=== PATIENT | female | born 1955 | race Caucasian/White ===

== ENCOUNTER 2021-06-20 13:35 | Emergency (ER) | payer MEDICARE, OTHER, SELFPAY ==
[2021-06-20 13:36] VITALS: BP 187/101; PULSE 78; RESP 14; TEMP 36.3; O2SAT 98; BMI 31.8
--- NOTE | 2021-06-20 14:33 | EKG12_ITS ---
Test Reason : ANXIETY Blood Pressure : / mmHG Vent. Rate : 079 BPM Atrial Rate : 079 BPM P-R Int : 172 ms QRS Dur : 092 ms QT Int : 406 ms P-R-T Axes : 030 -20 012 degrees QTc Int : 465 ms Normal sinus rhythm Inferior infarct , age undetermined Abnormal ECG Confirmed by JAYDE HAYES, EDWIN ([id number]), social media editor JUAN ANTONIO JAMES ([id number]) on 06/25/2021 9:20:21 AM Referred By: JASON Confirmed By:MICKEY DONOHUE MD
--- NOTE | 2021-06-20 14:34 | EDS_ITS ---
HPI History of Present Illness Chief Complaint: Anxiety Informant: patient Onset/Context/Timing Onset: Days Context: Gradual Onset Current Severity: Moderate Maximum Severity: Moderate Narrative Narrative: Patient presents secondary to anxiety and elevated blood pressure. She states that approximate 1 month ago she decreased her BuSpar from 3 tabs daily to 2 tabs daily. Approximately 3 days ago she started feeling more anxious and went back on her regular 3 tabs a day. She states she still feels anxious and her blood pressure has been elevated. She states her blood pressure normally runs around 140 systolic and lately has been running in the 160-180 range. She is on lisinopril daily and is continuing to take that. [facility] Medical History High cholesterol Hypertension Hypothyroidism Kidney stone Home Medications levothyroxine 75 mcg PO DAILY 03/16/17 [History Last Taken Unknown] simvastatin [Zocor] 20 mg PO DAILY 03/16/17 [History Last Taken Unknown] acetaminophen [Tylenol] 650 mg PO Q4H PRN PRN tab 03/18/17 [Rx Last Taken Unknown] cefadroxil 1 g PO BID #16 tab 03/18/17 [Rx Last Taken Unknown] tamsulosin 0.4 mg PO BID #8 capsule 03/18/17 [Rx Last Taken Unknown] lorazepam [Ativan] 0.5 mg PO TID PRN #14 tab 06/20/21 [Rx Last Taken Unknown] Allergy/AdvReac Type Severity Reaction Status Date / Time No Known Allergies Allergy Verified 06/20/21 13:36 Social History Smoking Status: Never smoker ROS ROS ED Constitutional Constitutional ED: Denies chills or fever(s) Eyes Eyes: Denies change in vision ENT ENT ED: Denies sore throat Cardiovascular Cardiovascular: Denies chest pain Respiratory/Chest Respiratory/Chest: Denies cough or dyspnea Gastrointestinal Gastrointestinal: Denies abdominal pain, diarrhea, nausea or vomiting Genitourinary Genitourinary ED: Denies dysuria Musculoskeletal Musculoskeletal: Denies back pain Integumentary Denies rash Neurologic Neurologic: Reports paresthesias; Denies headache(s) or weakness Psychiatric Psychiatric: Reports anxiety; Denies depression Allergic/Immunologic Allergic/Immunologic ED: Denies urticaria EXAM Physical Exam Const Vital Signs: 06/20/21 13:36 Temperature 97.3 F L Temperature Source Temporal Pulse Rate 78 Respiratory Rate 14 Blood Pressure 187/101 H Blood Pressure Mean 129 Pulse Ox 98 Oxygen Delivery Method Room Air Positive well nourished and well developed General Appearance ED: well developed HEENT Reports normocephalic and head/scalp atraumatic Eyes PERRL and EOMs intact bilaterally Neck supple Chest Wall inspection of chest normal and palpation of chest normal Resp normal respiratory effort and clear to auscultation bilaterally Cardio regular rate and regular rhythm GI normal to inspection, nondistended, normoactive bowel sounds Palpation: soft Back/Spine no CVA tenderness Extremity normal to inspection Neuro oriented x3 and no sensory deficits noted Sensorium / Orientation: alert Motor Exam: strength 5/5 throughout Psych Mood & Affect: anxious Skin no rashes or lesions noted MDM MDM MDM Narrative Medical decision making narrative: Lab work and EKG obtained. Lab Data Attestation: I reviewed the patient's lab results. Labs: Laboratory Results - last 24 hr 06/20/21 06/20/21 06/20/21 14:40 15:00 15:00 WBC Cancelled Corrected WBC Cancelled RBC Cancelled Hgb Cancelled Hct Cancelled MCV Cancelled MCH Cancelled MCHC Cancelled RDW Std Deviation Cancelled RDW Coeff of Greg Cancelled Plt Count Cancelled MPV Cancelled Immature Gran % (Auto) Cancelled Neut % (Auto) Cancelled Lymph % (Auto) Cancelled [place] % (Auto) Cancelled Eos % (Auto) Cancelled Baso % (Auto) Cancelled Absolute Neuts (auto) Cancelled Absolute Lymphs (auto) Cancelled Total Counted Cancelled Neutrophils % (Manual) Cancelled Band Neutrophils % Cancelled Lymphocytes % (Manual) Cancelled Monocytes % (Manual) Cancelled Eosinophils % (Manual) Cancelled Basophils % (Manual) Cancelled Metamyelocytes % Cancelled Myelocytes % Cancelled Promyelocytes % Cancelled Blast Cells % Cancelled Plasma Cell % (Manual) Cancelled Other Cells % Cancelled Nucleated RBC % Cancelled Nucleated RBCs/100 WBC Cancelled Differential Comment Cancelled Diff Path Review Cancelled Hypersegmented Neuts Cancelled Atypical Lymphocytes Cancelled Reactive Lymphocytes Cancelled Smudge Cells Cancelled Toxic Granulation Cancelled Toxic Vacuolation Cancelled Dohle Bodies Cancelled Pily Rods Cancelled Platelet Estimate Cancelled Plt Morphology Comment Cancelled RBC Morphology Cancelled Polychromasia Cancelled Hypochromasia Cancelled Poikilocytosis Cancelled Basophilic Stippling Cancelled Anisocytosis Cancelled Microcytosis Cancelled Macrocytosis Cancelled Spherocytes Cancelled Sickle Cells Cancelled Target Cells Cancelled Tear Drop Cells Cancelled Ovalocytes Cancelled Stomatocytes Cancelled [place] Bodies Cancelled [place] Cells Cancelled Bite Cells Cancelled Crenated Cell Cancelled Acanthocytes (Spur) Cancelled Rouleaux Cancelled Schistocytes Cancelled Sodium 141 Potassium 3.5 Chloride 106 Carbon Dioxide 27.0 Anion Gap 8 BUN 11 Creatinine 0.79 Estim Creat Clear Calc 39.21 Est GFR (MDRD) Af Amer 94 Est GFR (MDRD) Non-Af 77 BUN/Creatinine Ratio 14.0 Glucose 102 Calcium 9.2 Troponin I High Sens 9 TSH 2.83 Urine Color Straw Urine Clarity Clear Urine pH 7.0 Ur Specific [place] 1.010 Urine Protein Negative Urine Glucose (UA) Normal Urine Ketones Negative Urine Occult Blood Negative Urine Nitrite Negative Urine Bilirubin Negative Urine Urobilinogen Normal Ur Leukocyte Esterase Negative Urine RBC 0 SEEN Urine WBC 0 SEEN Ur Squamous Epith Cells 0 SEEN Urine Bacteria 0 SEEN Urine Mucus 0 SEEN 06/20/21 15:25 WBC 11.3 H Corrected WBC RBC 5.34 Hgb 15.4 H Hct 46.6 MCV 87.3 MCH 28.8 MCHC 33.0 RDW Std Deviation 44.5 H RDW Coeff of Greg 13.9 Plt Count 281 MPV 12.1 H Immature Gran % (Auto) 0.400 Neut % (Auto) 81.9 H Lymph % (Auto) 12.6 L [place] % (Auto) 4.5 Eos % (Auto) 0.1 Baso % (Auto) 0.5 Absolute Neuts (auto) 9.3 H Absolute Lymphs (auto) 1.43 Total Counted Neutrophils % (Manual) Band Neutrophils % Lymphocytes % (Manual) Monocytes % (Manual) Eosinophils % (Manual) Basophils % (Manual) Metamyelocytes % Myelocytes % Promyelocytes % Blast Cells % Plasma Cell % (Manual) Other Cells % Nucleated RBC % 0 Nucleated RBCs/100 WBC Differential Comment Diff Path Review Hypersegmented Neuts Atypical Lymphocytes Reactive Lymphocytes Smudge Cells Toxic Granulation Toxic Vacuolation Dohle Bodies Pily Rods Platelet Estimate Plt Morphology Comment RBC Morphology Polychromasia Hypochromasia Poikilocytosis Basophilic Stippling Anisocytosis Microcytosis Macrocytosis Spherocytes Sickle Cells Target Cells Tear Drop Cells Ovalocytes Stomatocytes [place] Bodies Justin Cells Bite Cells Crenated Cell Acanthocytes (Spur) Rouleaux Schistocytes Sodium Potassium Chloride Carbon Dioxide Anion Gap BUN Creatinine Estim Creat Clear Calc Est GFR (MDRD) Af Amer Est GFR (MDRD) Non-Af BUN/Creatinine Ratio Glucose Calcium Troponin I High Sens TSH Urine Color Urine Clarity Urine pH Ur Specific [place] Urine Protein Urine Glucose (UA) Urine Ketones Urine Occult Blood Urine Nitrite Urine Bilirubin Urine Urobilinogen Ur Leukocyte Esterase Urine RBC Urine WBC Ur Squamous Epith Cells Urine Bacteria Urine Mucus EKG Initial EKG: Attestation: I personally reviewed and interpreted this EKG as follows: Interpretation: Sinus Rhythm (Sinus at 79 with no acute ischemia.) Treatment and Re-Evaluation Comments:: Lab work unremarkable. EKG reveals no ischemia. On repeat exam patient systolic blood pressures come down to 168. She was given a small dose of IV Ativan to help with anxiety. On repeat evaluation she does feel improved from the standpoint of her blood pressure is reading 192 systolic. She will be given a dose of IV labetalol and will be discharged home with family. She will keep a journal of her blood pressure readings. She will be back on her regular dosing of BuSpar and will be given low-dose Ativan to use as needed to help with anxiety. Discharge Plan Triage Chief Complaint: Anxiety ED Provider: Seda Ramirez Dx/Rx/DC Orders Clinical Impression: Anxiety, Hypertension Instructions: ED Anxiety Reaction, ED Hypertension, Established Prescriptions: New lorazepam [Ativan] 0.5 mg tablet 0.5 mg PO TID PRN (Reason: anxiety) Qty: 14 RF: 0 No Action levothyroxine 75 MCG tablet 75 mcg PO DAILY RF: 0 simvastatin [Zocor] 20 MG tablet 20 mg PO DAILY RF: 0 acetaminophen [Tylenol] 325 MG tablet 650 mg PO Q4H PRN PRN (Reason: Pain) RF: 0 tamsulosin 0.4 MG capsule 0.4 mg PO BID Qty: 8 RF: 0 cefadroxil 1 GM tablet 1 g PO BID Qty: 16 RF: 0 Referrals: FREDERICK FLOOD [Other] - 1 Week Disposition Disposition: Home, Self Care
[2021-06-20 14:48] LABS: Bacteria 0 SEEN /hpf (None Seen); Mucous, Urine 0 SEEN /hpf (<or=2+); Red Blood Cells-Urine 0 SEEN /hpf (0-5); Squamous Epithelial Cells - UA 0 SEEN /hpf (5-10); White Blood Cells 0 SEEN /hpf (0-5)
[2021-06-20 14:51] LABS: Color, Urine Straw (Yellow); Glucose, Dipstick Normal (Normal); Ketone-Dipstick Negative (Negative); Leukocyte Esterase-Dipstick Negative /ul (Negative); Nitrite-Dipstick Negative (Negative); Occult Blood-Urine Negative /ul (Negative); Protein-Dipstick Negative (Negative); Urine Bilirubin Dipstick Negative (Negative); Urine Clarity Clear (Clear); Urine Urobilinogen Normal (Normal)
[2021-06-20 15:29] LABS: Anion Gap 8 (5-15); BUN 11 mg/dL (7-18); Calcium,Total 9.2 mg/dL (8.5-10.1); Chloride 106 mmol/L (98-107); Creatinine, Serum 0.79 mg/dL (0.55-1.02); EST Glomerular Filtration Rate 77 mL/min (>60); Est Glom Filt Rate - Afr Amer 94 mL/min (>60); Estimated Creatinine Clearance 39.21 ml/min; Glucose 102 mg/dL (74-106); Potassium 3.5 mmol/L (3.5-5.1); Sodium Level 141 mmol/L (136-145); Thyroid Stim Hormone (TSH) 2.83 uIU/mL (0.358-3.74); Troponin-I HS 9 pg/mL (3.0-54.0)
[2021-06-20 15:30] LABS: Absolute Lymphocyte Count 1.43 X10^3/uL (0.83-4.51); Absolute Neutrophil Count 9.3 X10^3/uL (2.0-7.7); Basophil# 0.06 X10^3/uL; Basophil% 0.5 % (0-1); Eosinophil# 0.01 X10^3/uL; Eosinophils% 0.1 % (0-5); Hematocrit 46.6 % (37-47); Hemoglobin 15.4 g/dL (12.0-15.0); Lymphocyte # 1.43 X10^3/ul (0.83-4.51); Lymphocyte % 12.6 % (19-41); Mean Corpuscular Hgb 28.8 pg (27.0-32.0); Mean Corpuscular Volume 87.3 fL (81-99); Mean Platelet Vol. 12.1 fl (6.2-12.0); Monocyte# 0.51 X10^3/uL; Monocyte% 4.5 % (0-10); NRBC Flagged by Analyzer 0 % (0-5); Neutrophil # 9.26 X10^3/uL (2.7-7.7); Neutrophil % 81.9 % (47-70); Platelet Count 281 K/mm3 (150-450); RBC Distribution Width CV 13.9 % (11.6-14.6); RBC Distribution Width SD 44.5 fl (35.1-43.9); Red Blood Count 5.34 M/mm3 (4.2-5.4); White Blood Count 11.3 K/mm3 (4.4-11.0)
[2021-06-20] MEDS: LORazepam 2 MG/ML Syringe 0.5 MG IV (16:24)
--- NOTE | 2021-06-20 17:29 | ED.RN ---
trandate not given per dr truong. pt's bp was 158/76.
[2021-06-20 17:31] VITALS: BP 158/76; PULSE 80; RESP 16; O2SAT 99
== END 2021-06-20 17:36 | disposition home or self-care (01) ==
PROVIDERS: Emergency Provider Emergency Medicine
DX: F41.9 Anxiety disorder, unspecified (principal); I10 Essential (primary) hypertension
CPT/HCPCS: 80048; 81001; 84443; 84484; 85025; 93005; 96374; 99285; A4216

== ENCOUNTER 2022-12-30 23:19 | Emergency (ER) | payer MEDICARE, OTHER, SELFPAY ==
[2022-12-30 23:20] VITALS: BP 180/84; PULSE 94; RESP 18; TEMP 36.4; O2SAT 100; BMI 31.4
--- NOTE | 2022-12-30 23:33 | ED.VIS.GI ---
HPI HPI - GI History of Present Illness Chief Complaint: Complaint Detail of Chief Complaint: Right flank pain with dysuria. Informant: patient Abdominal Pain/Flank Pain Onset: Days Context: Gradual Onset Timing: Intermittent Quality: Aching Location: Right Flank Current Severity: Mild Maximum Severity: Mild Nausea/Vomiting/Emesis GI Symptom: Negative for Nausea or Vomiting Diarrhea/Melena/Hematochezia GI Symptom: Negative for Diarrhea, Melena or Hematochezia Associated Symptoms Associated Symptoms: Positive for Dysuria; Negative for Frequency, Hematuria or Urgency Narrative Narrative: 67-year-old female history of 1 prior kidney stone and hypertension. States she has had dysuria after urinating when she wipes for the last several days. Start having right flank pain about 5 days ago on . Describes it as intermittent. She sees no gross blood in her urine and no foul odor. She denies any nausea, vomiting or diarrhea. No fever. Currently she is not having any significant flank pain. Prior similar symptoms: Yes Recent Illness/Hospitalization: No PFSH PFSH Medical History High cholesterol Hypertension Hypothyroidism Kidney stone Home Medications levothyroxine 75 mcg tablet 75 mcg PO DAILY 03/16/17 [History Last Taken Unknown] simvastatin 20 mg tablet (Zocor) 20 mg PO DAILY 03/16/17 [History Last Taken Unknown] acetaminophen 325 mg tablet (Tylenol) 650 mg PO Q4H PRN PRN Pain 03/18/17 [Rx Last Taken Unknown] cefadroxil 1 gram tablet 1 g PO BID #16 tabs 03/18/17 [Rx Last Taken Unknown] tamsulosin 0.4 mg capsule 0.4 mg PO BID ##8 03/18/17 [Rx Last Taken Unknown] lorazepam 0.5 mg tablet (Ativan) 0.5 mg PO TID PRN anxiety #14 tabs 06/20/21 [Rx Last Taken Unknown] Allergy/AdvReac Type Severity Reaction Status Date / Time No Known Allergies Allergy Verified 12/30/22 23:20 Social History Smoking Status: Never smoker ROS ROS ED ROS Narrative Dysuria. Right flank pain. Review of Systems ROS Unobtainable: Denies due to encephalopathy Constitutional Constitutional ED: Denies chills or fever(s) ENT ENT ED: Denies ear pain Cardiovascular Cardiovascular: Denies chest pain Respiratory/Chest Respiratory/Chest: Denies cough or dyspnea Gastrointestinal Gastrointestinal: Reports abdominal pain; Denies constipation, diarrhea, melena, nausea or vomiting Genitourinary Genitourinary ED: Reports dysuria; Denies hematuria Musculoskeletal Musculoskeletal: Denies arthralgias Integumentary Denies abscess Neurologic Neurologic: Denies headache(s) Psychiatric Psychiatric: Denies anxiety Endocrine Endocrinology: Denies polydipsia or polyphagia Hematologic/Lymphatic Hematologic/Lymphatic: Denies easy bleeding Allergic/Immunologic Allergic/Immunologic ED: Denies mouth swelling EXAM Physical Exam Narrative Exam Narrative: Well-appearing 67-year-old female. Vital signs stable afebrile. Sitting upright in bed no distress. H EENT exam unremarkable. Lungs clear. Heart regular rhythm. Chest wall nontender. Abdomen soft nontender. There is absolutely no right upper or right lower quadrant tenderness. There is no reproducible pain. There is no signs of trauma. There is no rash. Back is nontender. Moving all 4 extremities. Nontender no edema. Neurologically she is awake and alert. Const Vital Signs: 12/30/22 23:20 Temperature 97.5 F L Temperature Source Temporal Pulse Rate 94 Respiratory Rate 18 Blood Pressure 180/84 H Blood Pressure Mean 116 Pulse Ox 100 Positive well nourished and well developed; Negative for cachectic, contractures or unkempt General Appearance ED: well developed and NAD; Negative for unkempt, cachectic, contractures or pallor Nutritional Appearance: Negative for cachectic HEENT Reports moist mucous membranes normocephalic and atraumatic; Negative for trauma or tenderness Eyes PERRL and EOMs intact bilaterally General Eye ED: Negative for pale conjunctiva or scleral icterus Neck no lymphadenopathy, supple and no JVD General: Negative for tenderness Carotids: Negative for other Lymph Lymphatic: Negative for other Resp normal respiratory effort and clear to auscultation bilaterally Effort and Inspection: Negative for respiratory distress Auscultation: Negative for rales, rhonchi or wheezes Cardio regular rate, regular rhythm, S1 normal heart sound, S2 normal heart sound and no murmurs GI non-tender, non-distended and no masses Inspection: Negative for abdominal distention Auscultation: normoactive bowel sounds Palpation: soft; Negative for tender, guarding, rigid, hernia, mass, pulsatile mass or rebound tenderness present Back/Spine no CVA tenderness General Back: Negative for CVA tenderness Cervical Spine: Negative for cervical spine tenderness Thoracic Spine / Upper Back: Negative for thoracic spinal tenderness Lumbar Spine / Lower Back: Negative for lumbar spinal tenderness Coccyx: Negative for other Extremity full ROM General Extremety ED: Negative for edema or tenderness General Extremity: Negative for edema Neuro CN's II-XII intact bilaterally and moves all extremities Sensorium / Orientation: alert, oriented to person, oriented to place and oriented to time; Negative for orientation impaired or confused Motor Exam: strength 5/5 throughout Psych mental status grossly normal and thought process normal Appearance: Negative for unkempt Attitude: No agitated Mood & Affect: Negative for depressed, anxious or tearful Skin no wounds General Skin Exam: Negative for jaundice or pallor Lesions: no lesions Rashes: no rashes Trauma: Negative for abrasion Nails: Negative for discolored MDM MDM MDM Narrative Medical decision making narrative: 67-year-old female with dysuria and right flank pain. Her urine currently is sitting on the count of the sample and does not look infected. Urinalysis to be obtained. I will obtain a CT flank study for possible kidney stone. She does not have significant pain at this time does not want anything for pain. At this moment we will not place an IV if she needs pain medications out of the consideration. Repeat exam patient is doing well 1 AM. We went over her test results. Currently she is symptom-free. She will be discharged home. Motrin and Tylenol for pain. Plenty of fluids. We discussed the possibility that she may have already passed a stone in her bladder. History & Record Review Discussion w/independent historian: Patient and Family Lab Data Attestation: I reviewed the patient's lab results. Lab results narrative: Urinalysis negative. No nitrates. No white or red cells. No bacteria. CT flank study as read by the radiologist and reviewed by me shows a mildly dilated right ureter. I do not see an acute stone I think she may have had a recently passed kidney stone. There is also incidental finding of gallstones. I discussed the test results with the patient and family. Labs: Laboratory Results - last 24 hr 12/30/22 23:40 Urine Color Yellow Urine Clarity Clear Urine pH 7.0 Ur Specific [place] 1.010 Urine Protein Negative Urine Glucose (UA) Normal Urine Ketones Negative Urine Occult Blood Negative Urine Nitrite Negative Urine Bilirubin Negative Urine Urobilinogen Normal Ur Leukocyte Esterase Negative Urine RBC 0 SEEN Urine WBC 0 SEEN Ur Squamous Epith Cells 0-5 SEEN Urine Bacteria 0 SEEN Urine Mucus 0 SEEN Radiography Diagnostic Testing: Clinical Impression(s) from Imaging Studies Abdomen/Pelvis CT 12/31/22 00:00 IMPRESSION: 1. Punctate nonobstructing right renal calculi. 2. Mild dilatation of the right ureter as compared to the left which could be chronic or could be due to recent passage of a right ureteral stone; no obstructing ureteral stone identified at this time. 3. Sigmoid diverticulosis without evidence for acute diverticulitis. 4. Normal appendix. 5. Sludge and possible stones within the gallbladder fundus. Electronically Signed: Archie Mock MD at 0:40 EDT , Discharge Plan Triage Chief Complaint: Complaint ED Provider: Stef Bonilla Dx/Rx/DC Orders Clinical Impression: Acute right flank pain, History of renal stone Instructions: ED Flank Pain, Uncertain Cause Prescriptions: No Action levothyroxine 75 MCG tablet 75 mcg PO DAILY simvastatin [Zocor] 20 MG tablet 20 mg PO DAILY acetaminophen [Tylenol] 325 MG tablet 650 mg PO Q4H PRN PRN (Reason: Pain) 0RF tamsulosin 0.4 MG capsule 0.4 mg PO BID Qty: 8 0RF cefadroxil 1 GM tablet 1 g PO BID Qty: 16 0RF lorazepam [Ativan] 0.5 mg tablet 0.5 mg PO TID PRN (Reason: anxiety) Qty: 14 0RF Primary Care Provider: [facility] ,Out of Referrals: [facility] Doctor,Out of [Primary Care Provider] - As Needed Activity Restrictions/Additional Instructions: Your urine shows no signs of infection. The CAT scan shows what may be a recently passed kidney stone in your bladder. Tylenol and Motrin for pain. Drink plenty of water. You may have passed a small kidney stone in the next 1 to 2 days. Follow-up with your doctor as needed. Disposition Disposition: Home, Self Care
--- NOTE | 2022-12-31 | CT_ITS ---
EXAM: CT ABDOMEN AND PELVIS WITHOUT INTRAVENOUS CONTRAST CLINICAL INDICATION: right flank pain TECHNIQUE: Helically acquired images were obtained of the abdomen and pelvis without intravenous contrast. This CT exam was performed using one or more of the following dose reduction techniques: automated exposure control, adjustment of the mA and/or kV according to patient size, and/or use of iterative reconstruction technique. RADIATION DOSE: Total DLP: 742.41 mGy-cm. COMPARISON: Previous CT of 03/16/2017. FINDINGS: LOWER THORAX: Heavy coronary artery calcification again noted. No significant pericardial effusion. Minimal hiatal hernia is suspected. No acute basilar pulmonary infiltrates or pleural effusions. ABDOMEN: LIVER: Unremarkable. Homogeneous. GALLBLADDER AND BILE DUCTS: Gallbladder is normal in size. Hyperdensity fills the gallbladder fundus due to sludge and/or stones. No findings of acute cholecystitis or biliary ductal dilatation. PANCREAS: Pancreatic atrophy. No findings of acute pancreatitis. No focal cystic mass. SPLEEN: Unremarkable. Normal size without focal cystic or solid mass. ADRENALS: Unremarkable. No nodules. KIDNEYS AND URETERS: Normal size kidneys. Nonspecific perirenal stranding bilaterally, slightly greater on the left. 2 punctate nonobstructing right renal calculi are present. No left renal calculi are identified. Right ureter slightly larger in caliber than on the left. No obstructing ureteral stone. STOMACH AND BOWEL: Multiple sigmoid diverticula are present, without evidence for diverticulitis. No distended small bowel loops. Stomach is decompressed. No periduodenal inflammatory changes. PELVIS: APPENDIX: No evidence of acute appendicitis. BLADDER: Minimal cystocele. No bladder calculi. REPRODUCTIVE: Unremarkable as visualized. No mass. ABDOMEN and PELVIS: INTRAPERITONEAL SPACE: Unremarkable. No ascites or other fluid collection. No free air. BONES/JOINTS: Chronic pars defects at L5 with grade 1 anterolisthesis of L5 on S1, unchanged. Degenerative disc space narrowing with vacuum disc phenomenon at the L5/S1 level, and affecting multiple levels in the lower thoracic spine. Lumbar facet arthritis. No acute fracture. No suspicious lytic or blastic abnormality. SOFT TISSUES: Unremarkable. No discrete abdominal or pelvic wall hernia. VASCULATURE: Calcific abdominal aorta and its branches. No AAA. LYMPH NODES: In the left groin is a borderline enlarged lymph node measuring 10 mm in short axis diameter. No para-aortic adenopathy. CT/Abdomen/Pelvis without Cont IMPRESSION: 1. Punctate nonobstructing right renal calculi. 2. Mild dilatation of the right ureter as compared to the left which could be chronic or could be due to recent passage of a right ureteral stone; no obstructing ureteral stone identified at this time. 3. Sigmoid diverticulosis without evidence for acute diverticulitis. 4. Normal appendix. 5. Sludge and possible stones within the gallbladder fundus. Electronically Signed: Archie Mock MD at 0:40 EDT ,
[2022-12-31 00:03] LABS: Bacteria 0 SEEN /hpf (None Seen); Mucous, Urine 0 SEEN /hpf (<or=2+); Red Blood Cells-Urine 0 SEEN /hpf (0-5); White Blood Cells 0 SEEN /hpf (0-5)
[2022-12-31 00:04] LABS: Color, Urine Yellow (Yellow); Glucose, Dipstick Normal (Normal); Ketone-Dipstick Negative (Negative); Leukocyte Esterase-Dipstick Negative /ul (Negative); Nitrite-Dipstick Negative (Negative); Occult Blood-Urine Negative /ul (Negative); Protein-Dipstick Negative (Negative); Urine Bilirubin Dipstick Negative (Negative); Urine Clarity Clear (Clear); Urine Urobilinogen Normal (Normal)
[2022-12-31 00:10] LABS: Squamous Epithelial Cells - UA 0-5 SEEN /hpf (5-10)
== END 2022-12-31 01:10 | disposition home or self-care (01) ==
LOC: ED 12-31 01:09
PROVIDERS: Emergency Provider Emergency Medicine; Visit Provider Emergency Medicine
DX: R10.9 Unspecified abdominal pain (principal); R30.0 Dysuria; Z87.442 Personal history of urinary calculi
CPT/HCPCS: 74176; 81001; 99282

== ENCOUNTER 2023-01-21 12:13 | Emergency (ER) | payer MEDICARE, OTHER, SELFPAY ==
[2023-01-21 12:14] VITALS: BP 200/95; PULSE 75; RESP 16; TEMP 36.6; O2SAT 98; BMI 31.0
--- NOTE | 2023-01-21 12:37 | EDS_ITS ---
HPI HPI - Female History of Present Illness Chief Complaint: Flank Pain Detail of Chief Complaint: Right flank pain. Dysuria. Informant: patient Pain Onset: Days Context: Gradual Onset Timing: Intermittent Quality: Positive for Aching Location: See diagram and - (Right flank and lower quadrant.) Current Severity: Mild Maximum Severity: Mild Associated Symptoms Associated Symptoms: Positive for Dysuria; Negative for Frequency, Urgency, Hematuria, Missed Period or Irregular Period Narrative Narrative: 67-year-old female history of kidney stones, anxiety and hypertension. She is actually seen here 3 to 4 weeks ago for similar complaints work-up including CAT scan was negative. She is complaining of dysuria when she is done voiding she has discomfort. Right flank pain. No fever. No vomiting no diarrhea. Prior similar symptoms: Yes Recent Illness/Hospitalization: No PFSH PFSH Medical History High cholesterol Hypertension Hypothyroidism Kidney stone Home Medications levothyroxine 75 mcg tablet 75 mcg PO DAILY 03/16/17 [History Last Taken Unknown] simvastatin 20 mg tablet (Zocor) 20 mg PO DAILY 03/16/17 [History Last Taken Unknown] acetaminophen 325 mg tablet (Tylenol) 650 mg (2 x 325 mg) PO Q4H PRN PRN Pain 03/18/17 [Rx Last Taken Unknown] cefadroxil 1 gram tablet 1 g PO BID #16 tabs 03/18/17 [Rx Last Taken Unknown] tamsulosin 0.4 mg capsule 0.4 mg PO BID ##8 03/18/17 [Rx Last Taken Unknown] lorazepam 0.5 mg tablet (Ativan) 0.5 mg PO TID PRN anxiety #14 tabs 06/20/21 [Rx Last Taken Unknown] Allergy/AdvReac Type Severity Reaction Status Date / Time No Known Allergies Allergy Verified 01/21/23 12:15 Social History Smoking Status: Never smoker ROS ROS ED ROS Narrative Right flank pain. Review of Systems ROS Unobtainable: Denies due to encephalopathy Constitutional Constitutional ED: Denies chills or fever(s) Eyes Eyes: Denies blurry vision ENT ENT ED: Denies ear pain Cardiovascular Cardiovascular: Denies chest pain Respiratory/Chest Respiratory/Chest: Denies dyspnea Gastrointestinal Gastrointestinal: Denies abdominal pain, constipation, diarrhea, melena, nausea or vomiting Genitourinary Genitourinary ED: Reports dysuria; Denies hematuria or urinary frequency Musculoskeletal Musculoskeletal: Denies arthralgias Integumentary Denies abscess Neurologic Neurologic: Denies headache(s) Endocrine Endocrinology: Denies heat intolerance Hematologic/Lymphatic Hematologic/Lymphatic: Denies easy bleeding or easy bruising Allergic/Immunologic Allergic/Immunologic ED: Denies mouth swelling or tongue swelling EXAM Physical Exam Narrative Exam Narrative: Well-appearing female. Vital signs stable afebrile. H EENT exam unremarkable. Lungs clear. Heart regular rhythm. Abdomen soft, nontender, nondistended normal bowel sounds no peritoneal signs. Absolutely no abdominal reproducible tenderness. Right lower quadrant is completely nontender. Right flank is nontender. There is no rash or signs of trauma. Moving all 4 extremities. Awake and alert. No focal motor deficits. Const Vital Signs: 01/21/23 12:14 Temperature 98 F Temperature Source Temporal Pulse Rate 75 Respiratory Rate 16 Blood Pressure 200/95 H Blood Pressure Mean 130 Pulse Ox 98 Oxygen Delivery Method Room Air Positive well nourished and well developed; Negative for cachectic, contractures or unkempt General Appearance ED: well developed and NAD; Negative for unkempt, cachectic, contractures or pallor Nutritional Appearance: Negative for cachectic HEENT Reports moist mucous membranes; Denies dry mucous membranes Negative for trauma or tenderness Mouth ED: No dry mucous membranes Mouth: No dry mucous membranes Eyes PERRL and EOMs intact bilaterally General Eye ED: Negative for pale conjunctiva or scleral icterus Neck no lymphadenopathy, supple and no JVD General: Negative for other Thyroid: Negative for tender Lymph Lymphatic: Negative for other Chest Wall inspection of chest normal and palpation of chest normal Chest: Negative for other Resp normal respiratory effort and clear to auscultation bilaterally Effort and Inspection: Negative for pain with movement Auscultation: Negative for rales, rhonchi or wheezes Cardio regular rate, regular rhythm, S1 normal heart sound, no murmurs and no JVD GI normal to inspection, nondistended, normoactive bowel sounds, soft to palpation, non-tender, non-distended and no masses Auscultation: normoactive bowel sounds Palpation: Negative for tender, guarding, rigid, hepatomegaly, splenomegaly or mass Back/Spine no CVA tenderness General Back: Negative for CVA tenderness Cervical Spine: Negative for cervical spine tenderness Thoracic Spine / Upper Back: Negative for thoracic spinal tenderness Lumbar Spine / Lower Back: Negative for lumbar spinal tenderness Sacrum: Negative for other Extremity normal to inspection and full ROM General Extremety ED: Negative for edema or tenderness General Extremity: Negative for edema Neuro oriented x3 and CN's II-XII intact bilaterally Sensorium / Orientation: alert, oriented to person, oriented to place and oriented to time; Negative for confused, lethargic or stuporous Motor Exam: strength 5/5 throughout Psych mental status grossly normal Appearance: Negative for unkempt Attitude: No agitated Speech: No other Mood & Affect: Negative for depressed, anxious or tearful Skin no rashes or lesions noted and no wounds General Skin Exam: Negative for jaundice or pallor Rashes: No rashes noted Trauma: Negative for other MDM MDM MDM Narrative Medical decision making narrative: 67-year-old complaining of right flank pain. Also dysuria when she is done voiding. Urine is clear in the cup in the room. Her exam is completely benign. Abdomen is completely nontender. She had a CAT scan done about 3 weeks ago. I will get repeat labs and a urinalysis I do not think she needs imaging at this time. She does have a history of kidney stones but does not appear to have an acute kidney stone at this time. Repeat exam patient is doing well we discussed her test results. She does not need imaging at this time. She will be discharged home with outpatient follow- up. They can recheck her sodium in the next several weeks. She has a primary care physician a Dr. Segovia in [place]. History & Record Review Discussion w/independent historian: Patient and Family Additional record(s) reviewed:: Prior inpatient record, Prior outpatient record, Prior ED visit and Prior labs Lab Data Attestation: I reviewed the patient's lab results. Lab results narrative: CBC shows a white count 10.8. H&H of 15 and 45. Platelets 220. Sodium 130. Gap of 8. Normal BUN and creatinine. Glucose 106. Urinalysis negative. No white or red cells. No bacteria or nitrates. Labs: Laboratory Results - last 24 hr 01/21/23 01/21/23 01/21/23 12:45 12:45 13:25 WBC Cancelled 10.8 Corrected WBC Cancelled RBC Cancelled 5.07 Hgb Cancelled 15.2 H Hct Cancelled 45.8 MCV Cancelled 90.3 MCH Cancelled 30.0 MCHC Cancelled 33.2 RDW Std Deviation Cancelled 45.1 H RDW Coeff of Greg Cancelled 13.5 Plt Count Cancelled 220 MPV Cancelled 12.3 H Immature Gran % (Auto) Cancelled 0.400 Neut % (Auto) Cancelled 80.9 H Lymph % (Auto) Cancelled 13.1 L [place] % (Auto) Cancelled 4.9 Eos % (Auto) Cancelled 0.2 Baso % (Auto) Cancelled 0.5 Absolute Neuts (auto) Cancelled 8.8 H Absolute Lymphs (auto) Cancelled 1.42 Total Counted Cancelled Neutrophils % (Manual) Cancelled Band Neutrophils % Cancelled Lymphocytes % (Manual) Cancelled Monocytes % (Manual) Cancelled Eosinophils % (Manual) Cancelled Basophils % (Manual) Cancelled Metamyelocytes % Cancelled Myelocytes % Cancelled Promyelocytes % Cancelled Blast Cells % Cancelled Plasma Cell % (Manual) Cancelled Other Cells % Cancelled Nucleated RBC % Cancelled 0 Nucleated RBCs/100 WBC Cancelled Differential Comment Cancelled Diff Path Review Cancelled Hypersegmented Neuts Cancelled Atypical Lymphocytes Cancelled Reactive Lymphocytes Cancelled Smudge Cells Cancelled Toxic Granulation Cancelled Toxic Vacuolation Cancelled Dohle Bodies Cancelled Pily Rods Cancelled Platelet Estimate Cancelled Plt Morphology Comment Cancelled RBC Morphology Cancelled Cancelled Polychromasia Cancelled Hypochromasia Cancelled Poikilocytosis Cancelled Basophilic Stippling Cancelled Anisocytosis Cancelled Microcytosis Cancelled Macrocytosis Cancelled Spherocytes Cancelled Sickle Cells Cancelled Target Cells Cancelled Tear Drop Cells Cancelled Ovalocytes Cancelled Stomatocytes Cancelled [place] Bodies Cancelled [place] Cells Cancelled Bite Cells Cancelled Crenated Cell Cancelled Acanthocytes (Spur) Cancelled Rouleaux Cancelled Schistocytes Cancelled Sodium Cancelled 130 L Potassium Cancelled 4.1 Chloride Cancelled 99 Carbon Dioxide Cancelled 23.0 Anion Gap Cancelled 8 BUN Cancelled 8 Creatinine Cancelled 0.72 Estim Creat Clear Calc Cancelled 38.14 Est GFR (MDRD) Af Amer Cancelled 104 Est GFR (MDRD) Non-Af Cancelled 86 BUN/Creatinine Ratio Cancelled 11.2 Glucose Cancelled 106 Calcium Cancelled 9.1 Urine Color Yellow Urine Clarity Clear Urine pH 7.0 Ur Specific [place] 1.005 Urine Protein Negative Urine Glucose (UA) Normal Urine Ketones Negative Urine Occult Blood Negative Urine Nitrite Negative Urine Bilirubin Negative Urine Urobilinogen Normal Ur Leukocyte Esterase Negative Urine RBC 0 SEEN Urine WBC 0 SEEN Ur Squamous Epith Cells 0 SEEN Urine Bacteria 0 SEEN Urine Mucus 0 SEEN Discharge Plan Triage Chief Complaint: Flank Pain ED Provider: Stef Bonilla Dx/Rx/DC Orders Clinical Impression: Acute flank pain, Dysuria, Acute hyponatremia Instructions: ED Flank Pain, Uncertain Cause, ED Hyponatremia Prescriptions: No Action levothyroxine 75 MCG tablet 75 mcg PO DAILY simvastatin [Zocor] 20 MG tablet 20 mg PO DAILY acetaminophen [Tylenol] 325 MG tablet 650 mg PO Q4H PRN PRN (Reason: Pain) 0RF tamsulosin 0.4 MG capsule 0.4 mg PO BID Qty: 8 0RF cefadroxil 1 GM tablet 1 g PO BID Qty: 16 0RF lorazepam [Ativan] 0.5 mg tablet 0.5 mg PO TID PRN (Reason: anxiety) Qty: 14 0RF Primary Care Provider: Care Physician,No Primary Referrals: Giacomo Paz MD [Med Staff - Community Living Coach] - As soon as possible Care Physician,No Primary [Primary Care Provider] - Activity Restrictions/Additional Instructions: Your labs today look good other than your sodium is a little low at 130. That should be rechecked in about 2 weeks. No specific cause for your discomfort when you urinate or your flank pain. Follow-up with your primary care doctor in [place] or a local primary care physician. Motrin and Tylenol for pain. Disposition Disposition: Home, Self Care
[2023-01-21 13:01] LABS: Bacteria 0 SEEN /hpf (None Seen); Mucous, Urine 0 SEEN /hpf (<or=2+); Red Blood Cells-Urine 0 SEEN /hpf (0-5); Squamous Epithelial Cells - UA 0 SEEN /hpf (5-10); White Blood Cells 0 SEEN /hpf (0-5)
[2023-01-21 13:28] LABS: Color, Urine Yellow (Yellow); Glucose, Dipstick Normal (Normal); Ketone-Dipstick Negative (Negative); Leukocyte Esterase-Dipstick Negative /ul (Negative); Nitrite-Dipstick Negative (Negative); Occult Blood-Urine Negative /ul (Negative); Protein-Dipstick Negative (Negative); Specific Gravity, Urine 1.005 (1.002-1.030); Urine Bilirubin Dipstick Negative (Negative); Urine Clarity Clear (Clear); Urine Urobilinogen Normal (Normal)
[2023-01-21 13:31] LABS: Absolute Lymphocyte Count 1.42 X10^3/uL (0.83-4.51); Absolute Neutrophil Count 8.8 X10^3/uL (2.0-7.7); Basophil# 0.05 X10^3/uL; Basophil% 0.5 % (0-1); Eosinophil# 0.02 X10^3/uL; Eosinophils% 0.2 % (0-5); Hematocrit 45.8 % (37-47); Hemoglobin 15.2 g/dL (12.0-15.0); Lymphocyte # 1.42 X10^3/ul (0.83-4.51); Lymphocyte % 13.1 % (19-41); Mean Corp Hgb Conc 33.2 g/dL (32-36); Mean Corpuscular Volume 90.3 fL (81-99); Mean Platelet Vol. 12.3 fl (6.2-12.0); Monocyte# 0.53 X10^3/uL; Monocyte% 4.9 % (0-10); NRBC Flagged by Analyzer 0 % (0-5); Neutrophil # 8.76 X10^3/uL (2.7-7.7); Neutrophil % 80.9 % (47-70); Platelet Count 220 K/mm3 (150-450); RBC Distribution Width CV 13.5 % (11.6-14.6); RBC Distribution Width SD 45.1 fl (35.1-43.9); Red Blood Count 5.07 M/mm3 (4.2-5.4); White Blood Count 10.8 K/mm3 (4.4-11.0)
[2023-01-21 13:53] LABS: Anion Gap 8 (5-15); BUN 8 mg/dL (7-18); BUN/Creat Ratio 11.2 RATIO (10-20); Calcium,Total 9.1 mg/dL (8.5-10.1); Chloride 99 mmol/L (98-107); Creatinine, Serum 0.72 mg/dL (0.55-1.02); EST Glomerular Filtration Rate 86 mL/min (>60); Est Glom Filt Rate - Afr Amer 104 mL/min (>60); Estimated Creatinine Clearance 38.14 ml/min; Glucose 106 mg/dL (74-106); Potassium 4.1 mmol/L (3.5-5.1); Sodium Level 130 mmol/L (136-145)
== END 2023-01-21 14:49 | disposition home or self-care (01) ==
PROVIDERS: Emergency Provider Emergency Medicine; Visit Provider Emergency Medicine
DX: R10.9 Unspecified abdominal pain (principal); R30.0 Dysuria; E87.1 Hypo-osmolality and hyponatremia
CPT/HCPCS: 80048; 81001; 85025; 99282; A4216

== ENCOUNTER 2023-06-30 07:10 | Emergency (ER) | payer MEDICARE, OTHER, SELFPAY ==
[2023-06-30 07:10] VITALS: BP 167/84; PULSE 87; RESP 16; TEMP 36.4; O2SAT 99; BMI 29.2
--- NOTE | 2023-06-30 07:27 | EX.ED.DYSGE1 ---
HPI History of Present Illness Chief Complaint: Rash Detail of Chief Complaint: Facial rash Informant: patient and family Onset/Context/Timing Onset: Weeks (Onset approxi-1 week ago) Context: Sudden Onset Timing: Continuous Quality: Read scaly pruritic rash involving the face Current Severity: Moderate Maximum Severity: Moderate Worsened by: Unknown Relieved by: Nothing Associated Symptoms Associated Symptoms: Itching Narrative Narrative: Patient is a 67-year-old woman who has had a rash for approximately a week. She went to the pharmacy. Pharmacist recommended Benadryl cream. She has been using wipes on her face to remove her make-up. She has not changed her make-up. She states the itching is worse at night. Apparently, it was blotchy initially. Now it is confluent. There is been no drainage. Area of involvement predominantly right maxillary region minimally right forehead and also left perioral region. She denies new medication. She denies systemic symptoms. Prior similar symptoms: No Recent Illness/Hospitalization: No PFSH PFS Medical History High cholesterol Hypertension Hypothyroidism Kidney stone Home Medications levothyroxine 75 mcg tablet 75 mcg PO DAILY 03/16/17 [History Last Taken Unknown] simvastatin 20 mg tablet (Zocor) 20 mg PO DAILY 03/16/17 [History Last Taken Unknown] acetaminophen 325 mg tablet (Tylenol) 650 mg (2 x 325 mg) PO Q4H PRN PRN Pain 03/18/17 [Rx Last Taken Unknown] cefadroxil 1 gram tablet 1 g PO BID #16 tabs 03/18/17 [Rx Last Taken Unknown] tamsulosin 0.4 mg capsule 0.4 mg PO BID ##8 03/18/17 [Rx Last Taken Unknown] lorazepam 0.5 mg tablet (Ativan) 0.5 mg PO TID PRN anxiety #14 tabs 06/20/21 [Rx Last Taken Unknown] Allergy/AdvReac Type Severity Reaction Status Date / Time No Known Allergies Allergy Verified 06/30/23 07:10 Social History (Updated 06/30/23 @ 07:[address] David Gutierrez MD) Smoking Status: Never smoker substance use type: does not use ROS ROS ED Constitutional Constitutional ED: Denies chills, fever(s) or subjective Musculoskeletal Musculoskeletal: Denies arthralgias or myalgias Integumentary Reports rash; Denies abscess or Abrasions Neurologic Neurologic: Denies paresthesias Psychiatric Psychiatric: Reports anxiety; Denies depression Hematologic/Lymphatic Hematologic/Lymphatic: Reports systems reviewed and no addt'l complaints, except as documented EXAM Physical Exam Narrative Exam Narrative: Blood pressure is slightly elevated. Const Vital Signs: 06/30/23 07:10 Temperature 97.6 F L Temperature Source Temporal Pulse Rate 87 Respiratory Rate 16 Blood Pressure 167/84 H Blood Pressure Mean 111 Pulse Ox 99 Oxygen Delivery Method Room Air Positive well nourished and well developed General Appearance ED: well developed and NAD; Negative for cyanotic or diaphoretic HEENT Reports moist mucous membranes HEENT Narrative: There is an erythematous confluent rash right maxillary region. There is a patch of erythema right forehead and left perioral area. The rash is erythematous. It is not moist or draining serous or purulent material. The rash is scaly. The lateral border of the rash on the right side of the face is slightly more intense in color. There is no crusting lesions. The rash does not anayeli. The rash is not raised. The rash on the forehead is less erythematous and has minimal scaling noted. Eyes PERRL and EOMs intact bilaterally General Eye ED: Negative for pale conjunctiva or scleral icterus Neck no lymphadenopathy, supple and no JVD Resp normal respiratory effort Cardio regular rate and regular rhythm Extremity Extremity Narrative: There is no joint swelling noted hand. Neuro oriented x3, CN's II-XII intact bilaterally and no sensory deficits noted Sensorium / Orientation: alert Psych mental status grossly normal Skin Skin Narrative: Described under the HEENT portion of the medical record. MDM MDM MDM Narrative Medical decision making narrative: Suspect patient had dry skin. Now there may be an inflammatory response due to the Benadryl cream which is known to cause a reaction. Since patient has no systemic symptoms no history of autoimmune disorder laboratory tests were not obtained. Patient was informed to stop the Benadryl cream. She was placed on Atarax for her itching and to apply a moisturizing cream. She is also told to leave it open to the air. Furthermore she and her son were told if there is no improvement in 3 to 5 days she should follow-up with her primary and may need a dermatology referral. Discharge Plan Triage Chief Complaint: Rash ED Provider: David Gutierrez Dx/Rx/DC Orders Clinical Impression: History of anxiety, Dyshidrotic eczema Instructions: ED Atopic Dermatitis (Adult) Prescriptions: No Action levothyroxine 75 MCG tablet 75 mcg PO DAILY simvastatin [Zocor] 20 MG tablet 20 mg PO DAILY acetaminophen [Tylenol] 325 MG tablet 650 mg PO Q4H PRN PRN (Reason: Pain) 0RF tamsulosin 0.4 MG capsule 0.4 mg PO BID Qty: 8 0RF cefadroxil 1 GM tablet 1 g PO BID Qty: 16 0RF lorazepam [Ativan] 0.5 mg tablet 0.5 mg PO TID PRN (Reason: anxiety) Qty: 14 0RF Primary Care Provider: Care Physician,No Primary Referrals: Care Physician,No Primary [Primary Care Provider] - Doctor,Your [Non-Staff] - 3-5 Days if not improving Activity Restrictions/Additional Instructions: 1. Discontinue the Benadryl cream/ointment. 2. Discontinue using the wipes on your face 3. Apply Eucerin cream to rash 3 times a day 4. If you develop fever or chills or have colored drainage return to the emergency department Disposition Disposition: Home, Self Care
[2023-06-30 07:58] VITALS: BP 124/69; PULSE 72; RESP 15; O2SAT 98
== END 2023-06-30 08:00 | disposition home or self-care (01) ==
LOC: ED 07:56
PROVIDERS: Emergency Provider Emergency Medicine; Visit Provider Emergency Medicine
DX: L30.1 Dyshidrosis [pompholyx] (principal)
CPT/HCPCS: 99282